=== PATIENT | male | born 1985 | race Caucasian/White ===

== ENCOUNTER 2017-04-09 17:25 | Emergency (ER) | payer SELFPAY ==
--- NOTE | 2017-04-09 18:00 | RAD ---
RIGHT HAND: 04/09/17 Three views. HISTORY: Right hand pain. Carpals appear normally aligned. Angulation of the distal fifth metacarpal suggests old healed fractu re. No acute metacarpal fracture identified. The phalanges appear intact. Prominent degenerative santos ges noted at the DIP joint of the fifth finger with joint narrowing and hypertrophic spurring at this joint. On the lateral view, there is a large dorsal osteophyte at this joint and there is a fracture at the base of this osteophyte as seen on the lateral projection. This appears to represent a chroni c finding. IMPRESSION: 1. Deformity of the fifth metacarpal suggests old injury. 2. Moderate degenerative hypertrophic change at the DIP joint of the fifth finger with large francesco kvng osteophyte possibly representing old injury as described above. POS: [id number]
[2017-04-09] MEDS ORDERED: HYDROcodone/Acetaminophen 10/325 mg Tablet ONE (18:17)
[2017-04-09] MEDS ORDERED: Ketorolac Tromethamine 30 MG/ML VIAL ONE (18:58)
== END 2017-04-09 21:07 | disposition home or self-care (01) ==
LOC: ERS 17:25
DX: M79.641 Pain in right hand (principal); F17.210 Nicotine dependence, cigarettes, uncomplicated
CPT/HCPCS: 29125; 96372; J1885

== ENCOUNTER 2017-04-23 21:35 | Emergency (ER) | payer SELFPAY | END 2017-04-23 22:20 | LOC: ERS 21:35 | DX: F10.10 Alcohol abuse, uncomplicated (principal); Z71.6 Tobacco abuse counseling; F17.210 Nicotine dependence, cigarettes, uncomplicated | CPT/HCPCS: 99406 ==